=== PATIENT | male | born 1980 | race Caucasian/White ===

== ENCOUNTER → 2016-05-20 | Outpatient (CLI) | payer BC ==
[2016-05-20 14:08] LABS: ALBUMIN 3.9 g/dL (3.4-5.0); ALK PHOS 49 U/L (46-116); ALT (SGPT) 75 U/L (16-63); AST (SGOT) 30 U/L (15-37); DIRECT BILIRUBIN < 0.1 mg/dL (0.0-0.2); TOTAL BILIRUBIN 0.2 mg/dL (0.2-1.0); TOTAL PROTEIN 7.9 g/dL (6.4-8.2)
== END | disposition home or self-care (01) ==
LOC: LAB 13:37
PROVIDERS: ATTEND Psychiatry & Neurology Neurology with Special Qualifications in Child Neurology
DX: G35 Multiple sclerosis (principal)
CPT/HCPCS: 36415; 80076

== ENCOUNTER → 2018-04-22 | Outpatient (CLI) | payer BC ==
[~2018-04-22] MED LIST: BUPIVACAINE MPF 0.5% 10 ML VIAL for KCIC. IM ONE; GLIP5TAB10 PO; INSU100I13 SQ; IOHEXOL 300 MG/ML 50 ML VIAL. INT ART ONE; LIDOCAINE 1% Multi-Dose 20 ML VIAL. ID ONE; METF500T16 PO; methylPREDNISolone ACETATE 40 MG/ML VIAL. INT ART ONE
--- NOTE | 2018-04-22 17:23 | KCIC ---
Therapeutic right bicipital groove injection using fluoroscopic guidance. HISTORY: Pain. TECHNIQUE The procedure was explained to the patient as were potential risks, including among others infection, bleeding or allergic reaction. All questions were answered. Informed written consent was obtained. The anterior shoulder was prepped and draped in the usual sterile manner. Following administration of local anesthetic, a 22-gauge needle was advanced to the bicipital groove without difficulty. Needle position was confirmed with injection of 1 cc Omnipaque 300 contrast. This was followed by injection of a mixture of 1 cc (40 mg) Depo-Medrol, and 1 cc 0.5% Marcaine which was injected without difficulty. The needle was removed. There was good hemostasis at the injection site. The patient left in stable condition without immediate complication. 2 spot images were obtained. FLUOROSCOPY TIME: 26 seconds Electronically signed by: Sim Menendez MD (04/22/2018 5:19 PM) [id number]
== END | disposition home or self-care (01) ==
LOC: KCIC 10:29
PROVIDERS: ATTEND Orthopaedic Surgery Sports Medicine
DX: M25.511 Pain in right shoulder (principal); Z88.1 Allergy status to other antibiotic agents; E11.9 Type 2 diabetes mellitus without complications; Z79.4 Long term (current) use of insulin; Z79.899 Other long term (current) drug therapy
CPT/HCPCS: 20610; 77002; J1030; Q9967

== ENCOUNTER → 2018-09-07 | Outpatient (CLI) | payer BC ==
[~2018-09-07] MED LIST changes: -LIDOCAINE 1% Multi-Dose 20 ML VIAL. ID ONE; +LIDOCAINE 1% Multi-Dose 20 ML VIAL. IM ONE
--- NOTE | 2018-09-07 13:04 | KCIC ---
Therapeutic right bicipital groove injection using fluoroscopic guidance. HISTORY: Pain. TECHNIQUE The procedure was explained to the patient as were potential risks, including among others infection, bleeding or allergic reaction. Informed written consent was obtained. The anterior shoulder was prepped and draped in the usual sterile manner. Following administration of local anesthetic, a 22-gauge needle was advanced to the bicipital groove without difficulty. Following negative aspiration, a mixture of 1 cc (40 mg) Depo-Medrol, and 1 cc 0.5% Marcaine were injected without difficulty. The needle was removed. There was good hemostasis at the injection site. The patient left in stable condition without immediate complication. A single spot image is obtained. FLUOROSCOPY TIME: 35 seconds Electronically signed by: Sim Menendez MD (09/07/2018 1:01 PM) [id number]
== END | disposition home or self-care (01) ==
LOC: KCIC 10:18
PROVIDERS: ATTEND Orthopaedic Surgery Sports Medicine
DX: M75.21 Bicipital tendinitis, right shoulder (principal); Z88.1 Allergy status to other antibiotic agents
CPT/HCPCS: 20610; 77002; J1030; Q9967